=== PATIENT | female | born 1985 | race Caucasian/White ===

== ENCOUNTER 2017-08-14 15:44 | Emergency (ER) | payer OTHER ==
[~2017-08-14] VITALS: Ht 172.7 cm; Wt 77.0 kg
[2017-08-14 15:52] VITALS: BP 114/84; PULSE 80; RESP 16; TEMP 98.9; O2SAT 98
[2017-08-14 15:57] VITALS: O2SAT 98
[2017-08-14] MEDS ORDERED: SODIUM CHLORIDE 0.9% FLUSH 10 ML FLUSH IVF PRN (16:00)
--- NOTE | 2017-08-14 16:01 | PD ---
HPI Chief Complaint: Anxiety Time Seen by Provider: 15:48 Travel History International Travel<30 days: No Contact w/Intl Traveler<30days: No Traveled to known affect area: No History of Present Illness HPI The patient is a 32-year-old female who presents to the emergency department via EMS after an anxiety attack. The patient states she recently moved from [place] to the local area to live with her parents. The patient states that she delivered a child 3 months ago, her and left 10 days later, and she subsequently moved to the local area to live with her parents. The patient does have a history of PTSD, anxiety, and depression. The patient was on Zoloft and Xanax, however, ran out of her medication 2 weeks ago. The patient states that she had too much alcohol to drink yesterday during [place], [place]. She then felt guilty today because she had a 3 month at home with her parents. The patient states she suffered an anxiety attack earlier today with chest pain, palpitations, shortness of breath , and anxiety. The patient states her symptoms resolved as soon as EMS arrived. She denies any history of arrhythmias or coronary artery disease. She does have a history of similar symptoms in the past secondary to anxiety attacks. She denies any illicit drug use or alcohol use today. She does not have a local primary physician. Her last menstrual cycle was 3 weeks ago, she denies , states she has had no sexual intercourse since delivery of her child. She denies any suicidal ideation or homicidal ideation. Symptoms are moderate. PFSH Past Medical History Narrative Medical PTSD, anxiety, depression Anxiety: Yes Depression: Yes Tetanus Vaccination: > 5 Years Influenza Vaccination: Yes ?: Not Past Surgical History Appendectomy: Yes Section: Yes Social History Alcohol Use: Yes Tobacco Use: No Substance Use: No Allergies-Medications (Allergen,Severity, Reaction): Coded Allergies: No Known Allergies (Unverified , 08/14/17) Reported Meds & Prescriptions Reported Meds & Active Scripts Active Reported Xanax (Alprazolam) 0.25 Mg Tab Unknown Dose PO DIRECTED PRN Zoloft (Sertraline HCl) 25 Mg Tab Unknown Dose PO DAILY Review of Systems Except as stated in HPI: all other systems reviewed are Neg HENT: No: Headaches Cardiovascular: Positive: Chest Pain or Discomfort, Palpitations Respiratory: Positive: Shortness of Breath Gastrointestinal: No: Nausea, Vomiting, Abdominal Pain Musculoskeletal: No: Weakness Neurologic: No: Dizziness Psychiatric: Positive: Anxiety, Depression, No: Suicidal Ideations, Disorder of Thought, Mood Disorder, Homicidal Ideation Physical Exam Narrative GENERAL: Awake, alert, pleasant 32-year-old female who appears her stated age and is in no acute respiratory distress. Heart rate in the 70s. SKIN: Focused skin assessment warm/dry. HEAD: Atraumatic. Normocephalic. EYES: Pupils equal and round. No scleral icterus. No injection or drainage. ENT: No nasal bleeding or discharge. Mucous membranes pink and moist. NECK: Trachea midline. No JVD. CARDIOVASCULAR: Regular rate and rhythm. No murmur appreciated. RESPIRATORY: No accessory muscle use. Clear to auscultation. Breath sounds equal bilaterally. MUSCULOSKELETAL: No obvious deformities. No clubbing. No cyanosis. No edema. NEUROLOGICAL: Awake and alert. No obvious cranial nerve deficits. Motor grossly within normal limits. Normal speech. Nonfocal. Oriented 4. Follows commands without difficulty. PSYCHIATRIC: Appropriate mood and affect; insight and judgment normal. Data Data Last Documented VS Vital Signs Date Time Temp Pulse Resp B/P (MAP) Pulse Ox O2 Delivery O2 Flow Rate FiO2 08/14/17 15:57 98 Room Air 08/14/17 15:52 98.9 80 16 Orders Orders Electrocardiogram (08/14/17 15:56) Ckmb (Isoenzyme) Profile (08/14/17 15:56) Complete Blood Count With Diff (08/14/17 15:56) Comprehensive Metabolic Panel (08/14/17 15:56) Magnesium (Mg) (08/14/17 15:56) Troponin I (08/14/17 15:56) Ecg Monitoring (08/14/17 15:56) Iv Access Insert/Monitor (08/14/17 15:56) Oximetry (08/14/17 15:56) Sodium Chloride 0.9% Flush (Ns Flush) (08/14/17 16:00) Ed Urine Pregnancytest Poc (08/14/17 15:56) CKMB (08/14/17 16:00) CKMB% (08/14/17 16:00) Labs Laboratory Tests Test 08/14/17 16:00 White Blood Count 12.9 TH/MM3 Red Blood Count 3.78 MIL/MM3 Hemoglobin 11.2 GM/DL Hematocrit 34.0 % Mean Corpuscular Volume 90.0 FL Mean Corpuscular Hemoglobin 29.6 PG Mean Corpuscular Hemoglobin Concent 32.9 % Red Cell Distribution Width 13.6 % Platelet Count 277 TH/MM3 Mean Platelet Volume 7.9 FL Neutrophils (%) (Auto) 89.6 % Lymphocytes (%) (Auto) 6.1 % Monocytes (%) (Auto) 1.2 % Eosinophils (%) (Auto) 0.5 % Basophils (%) (Auto) 2.6 % Neutrophils # (Auto) 11.5 TH/MM3 Lymphocytes # (Auto) 0.8 TH/MM3 Monocytes # (Auto) 0.2 TH/MM3 Eosinophils # (Auto) 0.1 TH/MM3 Basophils # (Auto) 0.3 TH/MM3 CBC Comment DIFF FINAL Differential Comment Blood Urea Nitrogen 15 MG/DL Creatinine 0.83 MG/DL Random Glucose 171 MG/DL Total Protein 7.6 GM/DL Albumin 3.9 GM/DL Calcium Level 8.8 MG/DL Magnesium Level 1.7 MG/DL Alkaline Phosphatase 94 U/L Aspartate Amino Transf (AST/SGOT) 34 U/L Alanine Aminotransferase (ALT/SGPT) 60 U/L Total Bilirubin 0.4 MG/DL Sodium Level 140 MEQ/L Potassium Level 3.9 MEQ/L Chloride Level 108 MEQ/L Carbon Dioxide Level 23.1 MEQ/L Anion Gap 9 MEQ/L Estimat Glomerular Filtration Rate 79 ML/MIN Total Creatine Kinase 219 U/L Troponin I LESS THAN 0.02 NG/ML MDM Medical Decision Making Medical Screen Exam Complete: Yes Emergency Medical Condition: Yes Medical Record Reviewed: Yes Interpretation(s) EKG reveals normal sinus rhythm with a rate of 73. No ischemic changes or ectopy noted. Laboratory Tests Test 08/14/17 16:00 White Blood Count 12.9 TH/MM3 Red Blood Count 3.78 MIL/MM3 Hemoglobin 11.2 GM/DL Hematocrit 34.0 % Mean Corpuscular Volume 90.0 FL Mean Corpuscular Hemoglobin 29.6 PG Mean Corpuscular Hemoglobin Concent 32.9 % Red Cell Distribution Width 13.6 % Platelet Count 277 TH/MM3 Mean Platelet Volume 7.9 FL Neutrophils (%) (Auto) 89.6 % Lymphocytes (%) (Auto) 6.1 % Monocytes (%) (Auto) 1.2 % Eosinophils (%) (Auto) 0.5 % Basophils (%) (Auto) 2.6 % Neutrophils # (Auto) 11.5 TH/MM3 Lymphocytes # (Auto) 0.8 TH/MM3 Monocytes # (Auto) 0.2 TH/MM3 Eosinophils # (Auto) 0.1 TH/MM3 Basophils # (Auto) 0.3 TH/MM3 CBC Comment DIFF FINAL Differential Comment Blood Urea Nitrogen 15 MG/DL Creatinine 0.83 MG/DL Random Glucose 171 MG/DL Total Protein 7.6 GM/DL Albumin 3.9 GM/DL Calcium Level 8.8 MG/DL Magnesium Level 1.7 MG/DL Alkaline Phosphatase 94 U/L Aspartate Amino Transf (AST/SGOT) 34 U/L Alanine Aminotransferase (ALT/SGPT) 60 U/L Total Bilirubin 0.4 MG/DL Sodium Level 140 MEQ/L Potassium Level 3.9 MEQ/L Chloride Level 108 MEQ/L Carbon Dioxide Level 23.1 MEQ/L Anion Gap 9 MEQ/L Estimat Glomerular Filtration Rate 79 ML/MIN Total Creatine Kinase 219 U/L Troponin I LESS THAN 0.02 NG/ML Differential Diagnosis Differential diagnosis includes anxiety attack, panic attack, depressive disorder NOS, palpitations, arrhythmia, electrolyte abnormality, dehydration. Narrative Course IV was established, labs are drawn and sent, and the patient was placed on cardiac telemetry monitoring and continuous pulse oximetry monitoring. EKG was ordered and interpreted. EKG is unremarkable. Electrolytes are unremarkable. Glucose was mildly elevated. Troponin was less than 0.02, CPK was 219. The patient was reevaluated, she was still asymptomatic. She is requesting to go back on Zoloft, we will start at 50 mg daily, it is generally regarded as safe in breast-feeding and . We had a discussion regarding Xanax Ativan which is generally regarded is unsafe and /breast-feeding, therefore, that was not refilled. She is advised to follow-up with a primary physician and /or psychiatrist. Return if symptoms worsen or progress. Diagnosis Primary Impression: Panic attack Patient Instructions: General Instructions Additional Instructions: Medications as directed. Please provide the patient a copy of her labs at discharge. Follow-up with your primary physician and her psychiatrist. Return if symptoms worsen or progress. Med/Other Pt SpecificInfo: Prescription(s) given Scripts Sertraline (Zoloft) 50 Mg Tab 50 MG PO DAILY, #30 TAB 1 Refill Prov: Matt Borges MD 08/14/17 Disposition: 01 DISCHARGE HOME Condition: Stable Matt Borges MD Aug 14, 2017 16:01
[2017-08-14 16:16] LABS: AUTOMATED NEUTROPHIL # 11.5 TH/MM3 (1.8-7.7); BASOPHIL # 0.3 TH/MM3 (0-0.2); BASOPHIL % 2.6 % (0.0-2.0); EOSINOPHIL # 0.1 TH/MM3 (0-0.4); EOSINOPHIL % 0.5 % (0.0-4.0); HEMOGLOBIN 11.2 GM/DL (11.6-15.3); LYMPH % 6.1 % (9.0-44.0); LYMPHOCYTE # 0.8 TH/MM3 (1.0-4.8); MEAN CORPUSCULAR HEMOGLOBIN 29.6 PG (27.0-34.0); MEAN CORPUSCULAR HGB CONC 32.9 % (32.0-36.0); MEAN PLATELET VOLUME 7.9 FL (7.0-11.0); MONO % 1.2 % (0.0-8.0); MONOCYTE # 0.2 TH/MM3 (0-0.9); NEUT % 89.6 % (16.0-70.0); PLATELET COUNT 277 TH/MM3 (150-450); RED BLOOD COUNT 3.78 MIL/MM3 (4.00-5.30); RED CELL DISTRIBUTION WIDTH 13.6 % (11.6-17.2); WHITE BLOOD COUNT 12.9 TH/MM3 (4.0-11.0)
[2017-08-14] MEDS ORDERED: ZOLO25TA PO (16:32)
[2017-08-14] MEDS ORDERED: ALPR.25 PO (16:32)
[2017-08-14 16:41] LABS: CHLORIDE 108 MEQ/L (98-107); SODIUM (NA) 140 MEQ/L (136-145)
[2017-08-14 16:44] LABS: CALCIUM 8.8 MG/DL (8.5-10.1)
[2017-08-14 16:45] LABS: ALBUMIN 3.9 GM/DL (3.4-5.0); BICARBONATE 23.1 MEQ/L (21.0-32.0); BLOOD UREA NITROGEN 15 MG/DL (7-18); GLUCOSE,RANDOM 171 MG/DL (74-106); MAGNESIUM 1.7 MG/DL (1.5-2.5)
[2017-08-14 16:48] LABS: ALT (GPT) 60 U/L (10-53); AST (GOT) 34 U/L (15-37); CREATININE 0.83 MG/DL (0.50-1.00); GLOMERULAR FILTRATION RATE 79 ML/MIN (>89)
[2017-08-14 16:49] LABS: TOTAL BILIRUBIN ADULT 0.4 MG/DL (0.2-1.0); TOTAL PROTEIN 7.6 GM/DL (6.4-8.2)
[2017-08-14 16:51] LABS: ALKALINE PHOSPHATASE 94 U/L (45-117)
[2017-08-14 16:53] LABS: TROPONIN I LESS THAN 0.02 NG/ML (0.02-0.05)
[2017-08-14] MEDS ORDERED: ZOLO50TA PO (17:14)
[2017-08-14] MEDS ORDERED: ONDANSETRON HCL 4 MG/2 ML VIAL IV PUSH ONE (17:15)
[2017-08-14 17:20] VITALS: BP 124/79; PULSE 74; RESP 16; O2SAT 100
--- NOTE | 2017-08-15 16:08 | EKG ---
Date Performed: 08/14/2017 Time Performed: 16:16:25 PTAGE: 32 years EKG: Sinus rhythm NORMAL ECG NO PREVIOUS TRACING DOCTOR: Lalo Mckeon Interpretating Date/Time 08/15/2017 16:06:29
== END 2017-08-14 17:59 | disposition home or self-care (01) ==
LOC: PHED 15:44
DX: F41.0 Panic disorder [episodic paroxysmal anxiety] (principal); R07.9 Chest pain, unspecified; R00.2 Palpitations; R06.02 Shortness of breath; F32.9 Major depressive disorder, single episode, unspecified; F43.10 Post-traumatic stress disorder, unspecified
CPT/HCPCS: 80053; 82550; 82552; 83735; 84484; 85025; 93005; 96374; 99284; J2405

== ENCOUNTER 2018-04-25 07:16 | Observation (INO) ==
[2018-04-25] MEDS ORDERED: Sod Chloride 0.9% Inj 1,000 ML IV.SIG ONE (07:44)
--- NOTE | 2018-04-25 07:48 | ED ---
HPI General Chief complaint: Nausea/Vomiting/Diarrhea Stated complaint: chest pain Time Seen by Provider: 04/25/18 07:38 History of Present Illness HPI Narrative: The patient was seen and examined in the presence of the nurse. This patient complains of nausea vomiting diarrhea. Duration one day. Severity is moderate to severe. She is 12 weeks . She is not having vaginal bleeding. Patient is very hysterical on arrival and is gagging and retching and seems very anxious. She she is very challenging to obtain any sort of history from. She ignores a lot of questions and curls up in a position and retches more. No alleviating factors. No exacerbating factors. No ill contacts. Related Data Home Medications Medication Instructions Recorded Confirmed No Known Home Medications 03/09/18 04/25/18 Allergies Allergy/AdvReac Type Severity Reaction Status Date / Time No Known Allergies Allergy Unverified 08/14/17 15:52 Review of Systems ROS: all other systems reviewed are negative PMFSH Medical History Medical History Anxiety (Acute) Depression (Acute) PTSD (post-traumatic stress disorder) (Acute) Surgical History Surgical History Hx of appendectomy (Acute) Hx of section (Acute) Social History Social History Substance History: No History of Abuse Second Hand Smoke Exposure: No Smoking Status: Never smoker How Often Do You Have a Drink Containing Alcohol: Never Recent Travel [facility] within the Last 8 Weeks: No Recent Out of Country Travel within the Last 8 Weeks: No Immunization History Tetanus Immunization: <5 Years Exam Narrative Exam Narrative: GENERAL: Well-nourished, well-developed patient eating and retching and curled in a position . SKIN: Focused skin assessment reveals no rash and nodules. Skin is Warm and dry. HEAD: Atraumatic. Normocephalic. EYES: Pupils equal and round. No scleral icterus. No injection or drainage. ENT: No nasal bleeding or discharge. Mucous membranes pink and moist. NECK: Trachea midline. No JVD. CARDIOVASCULAR: Regular rate and rhythm. No murmur appreciated. RESPIRATORY: No accessory muscle use. Clear to auscultation. Breath sounds equal bilaterally. GASTROINTESTINAL: Abdomen soft, non-tender, nondistended. Hepatic and splenic margins not palpable. MUSCULOSKELETAL: No obvious deformities. No clubbing. No cyanosis. No edema. NEUROLOGICAL: Awake and alert. No obvious cranial nerve deficits. Motor grossly within normal limits. Normal speech. PSYCHIATRIC: Very anxious mood and affect; insight and judgment poor . Course Initial Documented Vital Signs Temperature 97.4 F L 04/25/18 07:25 Pulse Rate 90 04/25/18 07:25 Respiratory Rate 20 04/25/18 07:25 Blood Pressure 115/81 04/25/18 07:25 Pulse Oximetry 97 04/25/18 07:25 Last Documented Vital Signs Temperature 97.4 F L 04/25/18 07:25 Pulse Rate 85 04/25/18 09:38 Respiratory Rate 18 04/25/18 09:38 Blood Pressure 144/88 H 04/25/18 09:38 Pulse Oximetry 98 04/25/18 09:38 Medical Decision Making MDM Narrative Medical decision making narrative: 33-year-old female with 1 day of nausea vomiting diarrhea. Placed IV and given a liter of saline as well as dose of Zofran and Phenergan. Labs have been sent. I did a bedside transabdominal ultrasound which reveals intrauterine fetus with good movement and good heartbeat I do not think this is related. She has no morning sickness throughout the and now a 12-13 weeks I find unlikely that that is going to start. But she is having a lot of diarrhea which could be viral gastroenteritis or food poisoning. However 3 hours into her stay here she still actively retching and given her 3 different doses of nausea medications. At this point I am going to make her a 23-hour observation for intractable vomiting. I reviewed with the hospitalist. He will keep her here as there is no obvious issue to deal with at the moment Medical Screen Exam Complete: Yes Emergency Medical Condition: Yes Differential Diagnosis Differential Diagnosis: Gastroenteritis, hyperemesis gravidarum, electrolyte abnormality Lab Data Lab results narrative: Nonspecific leukocytosis with mild anemia Result diagrams: 04/25/18 07:35 04/25/18 07:35 Lab Results 04/25/18 04/25/18 Range/Units 07:35 07:35 CBC w Diff Auto diff final WBC 14.5 H (4.0-11.0) th/mm3 RBC 3.78 L (4.00-5.30) mil/mm3 Hgb 11.1 L (11.6-15.3) gm/dL Hct 34.3 L (35.0-46.0) % MCV 90.8 (80.0-100.0) fL MCH 29.5 (27.0-34.0) pg MCHC 32.4 (32.0-36.0) % RDW 13.2 (11.6-17.2) % Plt Count 261 (150-450) th/mm3 MPV 8.3 (7.0-11.0) fL Neut % (Auto) 94.4 H (16.0-70.0) % Lymph % (Auto) 4.5 L (9.0-44.0) % [place] % (Auto) 0.8 (0.0-8.0) % Eos % (Auto) 0.1 (0.0-4.0) % Baso % (Auto) 0.2 (0.0-2.0) % Neut # (Auto) 13.7 H (1.8-7.7) th/mm3 Lymph # (Auto) 0.7 L (1.0-4.8) th/mm3 [place] # (Auto) 0.1 (0.0-0.9) th/mm3 Eos # (Auto) 0.0 (0.0-0.4) th/mm3 Baso # (Auto) 0.0 (0.0-0.2) th/mm3 WBC Differential . Differential Comment . Sodium 140 (136-145) meq/L Potassium 3.5 (3.5-5.1) meq/L Chloride 108 H (98-107) meq/L Carbon Dioxide 23.9 (21.0-32.0) meq/L Anion Gap 8 (5-15) meq/L BUN 13 (7-18) mg/dL Creatinine 0.61 (0.50-1.00) mg/dL Estimated GFR Greater than 89 (>89) mL/min Random Glucose 148 H (74-106) mg/dL Calcium 8.2 L (8.5-10.1) mg/dL Total Bilirubin 0.2 (0.2-1.0) mg/dL AST 23 (15-37) U/L ALT 30 (10-53) U/L Alkaline Phosphatase 91 (45-117) U/L Total Protein 7.6 (6.4-8.2) g/dL Albumin 3.6 (3.4-5.0) g/dL Lipase 155 (73-393) U/L Discharge Plan Discharge Disposition Patient Disposition: ED Admit(ED Internal Use Only) Discharge Details Diagnosis: Intractable vomiting with nausea, Currently Physicians Team ED Provider: Salazar Dumas Primary Care Provider: Primary Care Gabriela Arrieta Rxs /Orders / Referrals /Forms Prescriptions: No Action No Known Home Medications RF: 0 Discharge Interventions Interventions: Vital Signs Last Done: 04/25/18 09:38 Status ED Status: With Doctor
[2018-04-25 07:56] LABS: Baso % (Auto) 0.2 % (0.0-2.0); Eos % (Auto) 0.1 % (0.0-4.0); Hematocrit 34.3 % (35.0-46.0); Hemoglobin 11.1 gm/dL (11.6-15.3); Lymph # (Auto) 0.7 th/mm3 (1.0-4.8); Lymph % (Auto) 4.5 % (9.0-44.0); Mean Corpuscular HGB Conc 32.4 % (32.0-36.0); Mean Corpuscular Hemoglobin 29.5 pg (27.0-34.0); Mean Corpuscular Volume 90.8 fL (80.0-100.0); Mean Platelet Volume 8.3 fL (7.0-11.0); Mono # (Auto) 0.1 th/mm3 (0.0-0.9); Mono % (Auto) 0.8 % (0.0-8.0); Neut # (Auto) 13.7 th/mm3 (1.8-7.7); Neut % (Auto) 94.4 % (16.0-70.0); Platelet Count 261 th/mm3 (150-450); Red Blood Count 3.78 mil/mm3 (4.00-5.30); Red Cell Distribution Width 13.2 % (11.6-17.2); White Blood Count 14.5 th/mm3 (4.0-11.0)
[2018-04-25 08:15] LABS: Chloride 108 meq/L (98-107); Potassium 3.5 meq/L (3.5-5.1); Sodium 140 meq/L (136-145)
[2018-04-25 08:18] LABS: Albumin 3.6 g/dL (3.4-5.0); Anion Gap 8 meq/L (5-15); Calcium 8.2 mg/dL (8.5-10.1); Carbon Dioxide 23.9 meq/L (21.0-32.0); Lipase 155 U/L (73-393)
[2018-04-25 08:19] LABS: Blood Urea Nitrogen 13 mg/dL (7-18); Glucose,Random 148 mg/dL (74-106)
[2018-04-25 08:21] LABS: Alanine Aminotransferase 30 U/L (10-53); Aspartate Aminotransferase 23 U/L (15-37); Glomerular Filtration Rate Greater Than 89 mL/min (>89)
[2018-04-25 08:23] LABS: Total Protein 7.6 g/dL (6.4-8.2)
[2018-04-25 08:24] LABS: Alkaline Phosphatase 91 U/L (45-117)
[2018-04-25] MEDS ORDERED: Acetaminophen 325 MG Tablet PO PRN (10:03)
[2018-04-25] MEDS ORDERED: Sod Chloride 0.9% Inj 1,000 ML IV.CONT SCH (10:15)
--- NOTE | 2018-04-25 13:10 | P.HPIM ---
History of Present Illness Primary Care Physician: No Primary Care Physician Chief Complaint: Nausea and vomiting History of Present Illness: The patient is a 33-year-old female with a past medical history of anxiety, depression and PTSD who is presenting to the hospital with nausea and vomiting as well as diarrhea. The patient was difficult to get history from because she was retching for most of the examination. Her mother was at the bedside and assisted with history taking. The patient denies any recent travel. She denies any recent medication adjustments. She says she is about 13 weeks . She did initially have diarrhea but that has since stopped. She is very nauseous. She is retching and gagging often. She denies any fevers. She says she is breathing okay. She says that she has been sweating a lot and has been experiencing chills. Her mother states that she is yet to see an SYSTEMS DESIGN ENGINEER. The patient's mother also indicates that the patient has had symptoms like this before and she attributes those to her history of anxiety, depression and PTSD. The patient has 5 children and has had one . Review of Systems All other systems reviewed negative except as stated in HPI PMFSH - History History Provided By: Patient - Medical History Medical History: Medical History (Last Reviewed 04/25/18 @ 13:06 by Michael Ceballos DO) Anxiety Depression PTSD (post-traumatic stress disorder) - Surgical History Surgical History: Surgical History (Last Reviewed 04/25/18 @ 13:06 by Michael Ceballos DO) Hx of appendectomy Hx of section - Family History Family History: Family History (Last Updated 04/25/18 @ 13:09 by Michael Ceballos DO) Other No pertinent family history - Social History I have reviewed the patient's Social History: Yes - Tobacco History Second Hand Smoke Exposure: No Smoking Status: Never smoker - Alcohol History How Often Do You Have a Drink Containing Alcohol: Never - Substance Use History Substance History: No History of Abuse - Travel History Recent Travel in the [place] Within the Last 8 Weeks: No Recent Travel Out of the Country Within the Last 8 Weeks: No - Immunization History Tetanus Immunization: <5 Years Medications and Allergies Active Medications: Active Medications Acetaminophen (Tylenol) 650 mg PO Q4H PRN PRN Reason: Temp > 100.4, pain 1-2 Sodium Chloride (Ns Inj) 1,000 mls @ 100 mls/hr IV.CONT .Q10H CAROLE Last Admin: 04/25/18 11:27 Dose: 100 mls/hr Ondansetron HCl (Zofran Inj) 4 mg IV.PUSH Q6H PRN PRN Reason: SEVERE NAUSEA Pyridoxine HCl (Vitamin B-6) 25 mg PO Q6H PRN PRN Reason: NAUSEA Last Admin: 04/25/18 11:27 Dose: 25 mg Sodium Chloride (Ns Flush) 2 ml IV.FLUSH BID CAROLE Sodium Chloride (Ns Flush) 2 ml IV.FLUSH PRN PRN PRN Reason: FLUSH AFTER USING IV ACCESS Allergies Allergy/AdvReac Type Severity Reaction Status Date / Time No Known Allergies Allergy Unverified 08/14/17 15:52 Home Medications Medication Instructions Recorded Confirmed Type No Known Home Medications 03/09/18 04/25/18 History Exam Vital signs: Vital Signs 04/25/18 07:25 04/25/18 08:19 04/25/18 09:38 Temperature 97.4 F L Pulse Rate 90 86 85 Respiratory Rate 20 20 18 Blood Pressure 115/81 129/83 144/88 H Pulse Oximetry 97 99 98 04/25/18 11:15 04/25/18 11:33 04/25/18 12:00 Temperature 98.1 F 97.4 F L Pulse Rate 88 80 Respiratory Rate 20 18 Blood Pressure 132/75 124/69 Pulse Oximetry 97 100 Intake & Output 04/24/18 04/25/18 04/25/18 18:59 06:59 18:59 Intake Total 1000 / 1000 Balance 1000 / 1000 Weight 69.7 kg Intake: IV 1000 / 1000 NS Inj 1,000 ML @ Wide Open IV. 1000 / 1000 SIG BOLUS ONE Rx#:[id number] Narrative: GENERAL: Frail, uncomfortable. SKIN: Focused skin assessment reveals no rash and nodules. Diaphoretic. HEAD: Atraumatic. Normocephalic. EYES: Pupils equal and round. No scleral icterus. No injection or drainage. ENT: No nasal bleeding or discharge. Mucous membranes pink and moist. NECK: Trachea midline. No JVD. CARDIOVASCULAR: Regular rate and rhythm. No murmur appreciated. RESPIRATORY: No accessory muscle use. Clear to auscultation. Breath sounds equal bilaterally. GASTROINTESTINAL: Abdomen soft, non-tender, nondistended. Hepatic and splenic margins not palpable. MUSCULOSKELETAL: No obvious deformities. No clubbing. No cyanosis. No edema. NEUROLOGICAL: Awake and alert. No obvious cranial nerve deficits. Motor grossly within normal limits. Normal speech. Results - Labs CBC & Chem 7: 04/25/18 07:35 04/25/18 07:35 Labs: Short CBC 04/25/18 Range/Units 07:35 WBC 14.5 H (4.0-11.0) th/mm3 Hgb 11.1 L (11.6-15.3) gm/dL Hct 34.3 L (35.0-46.0) % Plt Count 261 (150-450) th/mm3 BMP 04/25/18 07:35 Sodium 140 Potassium 3.5 Chloride 108 H Carbon Dioxide 23.9 BUN 13 Creatinine 0.61 Calcium 8.2 L Liver Function 04/25/18 Range/Units 07:35 Total Bilirubin 0.2 (0.2-1.0) mg/dL AST 23 (15-37) U/L ALT 30 (10-53) U/L Alkaline Phosphatase 91 (45-117) U/L Albumin 3.6 (3.4-5.0) g/dL Caprini VTE Risk Assessment Caprini VTE Risk Assessment: No/Low Risk (score <= 1) Caprini Risk Assessment Model: Point Value = 1 Point Value = 2 Point Value = 3 Point Value = 5 Age 41-60 Minor surgery BMI > 25 kg/m2 Swollen legs Varicose veins or History of unexplained or recurrent spontaneous Oral contraceptives or hormone replacement Sepsis (< 1 month) Serious lung disease, including pneumonia (< 1 month) Abnormal pulmonary function Acute myocardial infarction Congestive heart failure (< 1 month) History of inflammatory bowel disease Medical patient at bed rest Age 61-74 Arthroscopic surgery Major open surgery (> 45 min) Laparoscopic surgery (> 45 min) Malignancy Confined to bed (> 72 hours) Immobilizing plaster cast Central venous access Age >= 75 History of VTE Family history of VTE Factor V Leiden Prothrombin [id number] Lupus anticoagulant Anticardiolipin antibodies Elevated serum homocysteine Heparin-induced thrombocytopenia Other congenital or acquired thrombophilia Stroke (< 1 month) Elective arthroplasty Hip, pelvis, or leg fracture Acute spinal cord injury (< 1 month) Prophylaxis Regimen: Total Risk Factor Score Risk Level Prophylaxis Regimen 0-1 Low Early ambulation 2 Moderate Order ONE of the following: *Sequential Compression Device (SCD) *Heparin 5000 units SQ BID 3-4 Higher Order ONE of the following medications: *Heparin 5000 units SQ TID *Enoxaparin/Lovenox 40 mg SQ daily (WT < 150 kg, CrCl > 30 mL/min) *Enoxaparin/Lovenox 30 mg SQ daily (WT < 150 kg, CrCl > 10-29 mL/min) *Enoxaparin/Lovenox 30 mg SQ BID (WT < 150 kg, CrCl > 30 mL/min) AND/OR *Sequential Compression Device (SCD) 5 or more Highest Order ONE of the following medications: *Heparin 5000 units SQ TID (Preferred with Epidurals) *Enoxaparin/Lovenox 40 mg SQ daily (WT < 150 kg, CrCl > 30 mL/min) *Enoxaparin/Lovenox 30 mg SQ daily (WT < 150 kg, CrCl > 10-29 mL/min) *Enoxaparin/Lovenox 30 mg SQ BID (WT < 150 kg, CrCl > 30 mL/min) AND *Sequential Compression Device (SCD) Assessment and Plan - Plan N/V/D Possibly secondary to viral gastroenteritis. Her diarrhea has resolved. Although, her mother believes some of these symptoms may be secondary to her psych history. -Continue pyridoxine and Zofran as needed for nausea. -IV fluids. -Advance diet as tolerated. Leukocytosis Likely reactive. Afebrile. -Check UA. -Follow CBC. The patient states she is about 13 weeks . She has not been following with an SYSTEMS DESIGN ENGINEER. -SYSTEMS DESIGN ENGINEER consult requested. Anxiety/Depression/PTSD Chronic problem. -Psych consult if needed. Hyperglycemia Likely stress reaction. -Follow BMP. PPx: Ambulation Discussed Condition With: Pt, mother, Dr. Dumas
[2018-04-25 15:50] LABS: Bilirubin,Urine Negative (Negative); Clarity,Urine Clear (Clear); Color,Urine Yellow (Yellw/Straw); Glucose,Urine (UA) Negative (Negative); Leukocyte Esterase,Urine Negative (Negative); Nitrite,Urine Negative (Negative); Specific Gravity,Urine 1.025 (1.002-1.035); Urobilinogen,Urine 0.2 mg/dL (Less than 2)
[2018-04-25 16:04] LABS: Bacteria,Urine Few /hpf; Mucus,Urine Few /lpf (Occasional); RBC,Urine 0-3 /hpf (0-3); Squamous Epithelial Cell,Urine 0-5 /hpf (0-5); WBC,Urine 0-5 /hpf (0-5)
--- NOTE | 2018-04-25 21:40 | ECG ---
Date Performed: 04/25/2018 Time Performed: 07:25:46 PTAGE: 33 years EKG: LIMB LEAD REVERSAL LOW QRS VOLTAGE IN EXTREMITY LEADS NONSPECIFIC T-WAVE ABNORMALITY ROXANNA RDERLINE ECG PREVIOUS TRACING : 08/14/2017 16.16 DOCTOR: Otis Manrique Interpretating Date/Time 04/25/2018 21:39:09
== END 2018-04-25 18:29 | disposition home or self-care (01) ==
LOC: PHED 07:16 → PHEDA 07:16 → UNDODISOB 11:07 → PH3 12:06
PROVIDERS: ADMIT Hospitalist; ATTEND Hospitalist